=== PATIENT | male | born 1995 | race Caucasian/White ===

== ENCOUNTER 2020-11-15 07:38 | Day surgery (SDC) | payer OTHER ==
[~2020-11-15] VITALS: Ht 172.7 cm; Wt 72.6 kg
--- NOTE | 2020-11-15 08:00 | NUR ---
PT AMBULATORY TO ROOM ACCOMPANIED BY ANR STAFF; VS AND WT OBTAINED; ORIENTED TO ROOM AND CALL SYSTEM; CALL CORDERO WITHIN REACH; WILL CONTIUE TO MONITOR.
[2020-11-15 08:30] VITALS: BP 116/77
[2020-11-15 08:45] VITALS: BP 116/77
[2020-11-15 11:13] LABS: HEMATOCRIT 40.8 % (39.0-50.0); HEMOGLOBIN 13.5 g/dl (14.0-18.0); IMMATURE GRANULOCYTES 0.2 % (0.0-5.0); MEAN CELL VOLUME 88.5 fL CALC (80.0-100.0); MEAN CORPUSCULAR HGB 29.3 pG CALC (26.0-32.0); MEAN CORPUSCULAR HGB CONC 33.1 g/dL CAL (32.0-36.0); NEUT# 3.02 thou/uL (1.82-7.42); RED BLOOD COUNT 4.61 mill/uL (4.70-6.10); RED CELL DISTRI WIDTH 12.2 % (11.5-15.5)
[2020-11-15 11:34] LABS: ALBUMIN 4.2 g/dL (3.2-5.0); ALKALINE PHOSPHATASE 56 u/l (38-126); ANION GAP 10 (6-22 (CALC)); BILIRUBIN, TOTAL 0.4 mg/dL (0.0-1.4); BUN 12 mg/dL (9-20); BUN/CREATININE RATIO 18 (12-20 (CALC)); CARBON DIOXIDE 33 mmol/l (22-30); CHLORIDE 99 mmol/l (95-108); CREATININE 0.7 mg/dL (0.7-1.3); GFR > 60 ML/MIN (>=60 (CALC)); GFR FOR AFR.AMER. > 60 ML/MIN (>=60 (CALC)); SGOT/AST 112 u/l (17-59); SODIUM 138 mmol/l (137-146); TOTAL PROTEIN 7.2 g/dL (6.3-8.2)
[2020-11-15 11:38] VITALS: BP 133/79
--- NOTE | 2020-11-15 13:11 | NUR ---
PT TRANSPORTED TO TRAUMA ROOM VIA BED ACCOMPANIED BY STAFF
--- NOTE | 2020-11-15 20:00 | NUR ---
RECEIVED PATIENT TO THE FLOOR AT 1951 IN STABLE CONDITION VIA BED. O2 2L N/C IN PLACE. IVF WITH K RIDE INFUSING. HR REG. PATIENT SEDATED BUT COOPERATIVE. RESPIRATIONS EVEN. ASSESSMENT COMPLETED AND CHARTED. BED IN LOW POSITION. CALL LIGHT WITHIN REACH.
[2020-11-15 20:03] VITALS: BP 109/61
--- NOTE | 2020-11-15 22:20 | NUR ---
ATIVAN 2MG IV GIVEN FOR AGGITATION AT 2218 WITH SOME POSITIVE EFFECT. HS MEDICATIONS GIVEN WITHOUT DIFFICULTY. PATIENT HAS HAD LOOSE BUT SOME FORMED BROWN STOOL.
--- NOTE | 2020-11-16 | NUR ---
PATIENT RESTING IN BED. CURRENTLY RESTING. RESPIRATIONS UNLABORED. NO ACUTE DISTRESS.
[2020-11-16 04:00] VITALS: BP 113/73
--- NOTE | 2020-11-16 04:47 | NUR ---
AM MEDS AT 0421, THREW THEM UP IMMEDIATELY AFTER. ABATEMENT WORKER REORDERING PO MEDS. EMESIS 100CC GREEN LIQUID EMESIS OBSERVED.
[2020-11-16 06:09] LABS: ALBUMIN 4.4 g/dL (3.2-5.0); ALKALINE PHOSPHATASE 54 u/l (38-126); ANION GAP 18 (6-22 (CALC)); BILIRUBIN, TOTAL 0.5 mg/dL (0.0-1.4); BUN 12 mg/dL (9-20); BUN/CREATININE RATIO 22 (12-20 (CALC)); CHLORIDE 98 mmol/l (95-108); CREATININE 0.6 mg/dL (0.7-1.3); GFR > 60 ML/MIN (>=60 (CALC)); GFR FOR AFR.AMER. > 60 ML/MIN (>=60 (CALC)); POTASSIUM 3.7 mmol/l (3.5-5.1); SGOT/AST 31 u/l (17-59); SODIUM 134 mmol/l (137-146); TOTAL PROTEIN 7.1 g/dL (6.3-8.2)
[2020-11-16 06:10] LABS: CARBON DIOXIDE 22 mmol/l (22-30)
--- NOTE | 2020-11-16 06:44 | NUR ---
PATIENT SHOWERED AT MIDNIGHT WITHOUT DIFFICULTY. NEW GOWN AND LINEN CHANGED. BED IN LOW POSITION. CALL LIGHT WITHIN REACH.
--- NOTE | 2020-11-16 07:00 | NUR ---
BEDSIDE REPORT RECEIVED, PT ASLEEP/
[2020-11-16 08:54] VITALS: BP 129/71
[2020-11-16 11:00] VITALS: BP 117/75
--- NOTE | 2020-11-16 11:40 | NUR ---
Discharge instructions given. Patient verbalizes understanding of same. Discharged in stable condition via Wheelchair WITH LISA WAGGONER NURSE to Home with family. All belongings sent with pt.
== END 2020-11-16 11:52 | disposition home or self-care (01) | DRG 897 ==
LOC: ANR 07:38 → MS2 07:38 → ANR 15:09
PROVIDERS: Nurse Practitioner; ATTEND Anesthesiology
DX: F11.20 Opioid dependence, uncomplicated (principal)
CPT/HCPCS: J2060; J2354